=== PATIENT | female | born 1970 | race Caucasian/White ===

== ENCOUNTER 2017-01-28 13:07 | Emergency (ER) | payer BC, MEDICARE, OTHER ==
[2017-01-28 13:20] VITALS: BP 134/78
[2017-01-28] MEDS ORDERED: TETRACAINE HCL 150 DROP BTL ONE (13:38)
--- OUTSIDE RECORDS SUMMARY | 2017-01-28 13:59 | XMS REPORT | Continuity of Care Document ---
:1970 Author Organization [facility] [place] [address] Care Team Providers Name Role Phone Garrett Franz Primary Care Provider [phone] Source Comments This disclosure is being made pursuant to the [employer] program and maynot contain all information available regarding this patient.[facility] Active Allergies and Adverse Reactions Allergen Noted Date Severity Reactions Comments Codeine 05/29/2014 Low Nausea Only,Rash Hydroxyzine 06/08/2016 Other (See Comments) Iodine 05/29/2014 High Shortness Of Breath,Rash Nortriptyline Hcl 05/29/2014 Other (See Comments) Propranolol 06/08/2016 Other (See Comments) Ultram 06/08/2016 Other (See Comments) Current Medications Be aware that medications may not be up to date as of this document. Alwaysverify current medications with the patient. Prescription Sig. Disp. Refills Start Date End Date Status gabapentin (NEURONTIN) Take 300 mg by Active 300 MG capsule mouth 2 (two) times daily. metFORMIN (GLUCOPHAGE) Take 200 mg by Active 500 MG tablet mouth 2 (two) times daily with meals. glipiZIDE (GLUCOTROL) Take 10 mg by Active 10 MG tablet mouth 2 (two) times daily before meals. NEXIUM 40 MG capsule TK 1 C PO QD 11 05/27/2016 Active doxepin (SINEQUAN) 100 TK 1 C PO QD AT 06/01/2016 Active MG capsule BEDTIME alprazolam (XANAX) 2 TK 1 T PO AT NOON 5 05/08/2016 Active MG tablet AND AT BEDTIME montelukast TK 1 T PO QD 05/15/2016 Active (SINGULAIR) 10 MG tablet polyethylene glycol 0 05/26/2016 Active (MIRALAX) powder topiramate (TOPAMAX) TK 1 T PO BID FOR 05/26/2016 Active 200 MG tablet HEADACHE triamcinolone 5 05/26/2016 Active (KENALOG) 0.5 % cream zolpidem (AMBIEN) 10 TK 1 T PO QHS 5 05/15/2016 Active MG tablet lidocaine-prilocaine 11 05/07/2016 Active (EMLA) cream XOPENEX HFA 45 MCG/ACT INHALE 2 PUFFS PO 0 05/07/2016 Active inhaler Q 4 H NEEDED FOR WHEEZING GENERLAC 10 GM/15ML TK 30 ML PO BID 11 06/01/2016 Active SOLN solution IN THE 8 OUNCE GLASS OF WATER YOU TAKE AFTER THE MILK OF MAGNESIA hyoscyamine Take 1 tablet by 30 tablet 1 06/08/2016 Active (ANASPAZ,LEVSIN) 0.125 mouth every 6 MG tablet (six) hours as needed for Cramping or Diarrhea. LINZESS 290 MCG TAKE 1 CAPSULE BY 30 capsule 7 10/29/2016 Active capsule MOUTH EVERY MORNING BEFORE BREAKFAST ONE TOUCH ULTRA TEST daily. TEST BLOOD 1 09/07/2016 Active test strip SUGAR ONCE DAILY ONETOUCH DELICA USE WITH TESTING 1 09/08/2016 Active LANCETS FINE MISC BLOOD SUGAR ONCE DAILY Blood Glucose use as directed 0 09/07/2016 Active Monitoring Suppl (ONE TOUCH ULTRA 2) W/DEVICE KIT ipratropium-albuterol 11 09/16/2016 Active (DUONEB) 0.5-2.5 (3) MG/3ML SOLN BREO ELLIPTA 200-25 INL 1 PUFF PO AT 11 10/22/2016 Active MCG/INH AEPB inhaler THE SAME TIME QD baclofen (LIORESAL) 10 3 10/02/2016 Active MG tablet buPROPion (WELLBUTRIN 11 08/17/2016 Active SR) 150 MG 12 hr tablet Active Problems Problem Noted Date Irritable bowel syndrome with constipation 06/11/2016 Most Recent Encounters Date Type Specialty Providers Description 01/12/2017 Data Import 10/30/2016 Orders Only Provider, Not In System Social History Tobacco Use Types Packs/Day Years Used Date Never Smoker Alcohol Use Drinks/Week oz/Week Comments No Last Filed Vital Signs Vital Sign Reading Time Taken Blood Pressure 130/66 06/08/2016 1:33 PM CDT Pulse 90 06/08/2016 1:33 PM CDT Temperature 35.6 C (96.1 F) 06/08/2016 1:33 PM CDT Respiratory Rate - - Height 1.6 m (5' 3") 06/08/2016 1:33 PM CDT Weight 96.163 kg (212 lb) 06/08/2016 1:33 PM CDT Body Mass Index 37.56 06/08/2016 1:33 PM CDT Oxygen Saturation - - Plan of Care Health Maintenance Due Date Last Done Comments Lab-Lipids 1972 LAB-HgA1C 1977 Foot Exam 1982 Tetanus/Pertussis (1 - Tdap) 12/28/1991 Pap Smear 1993 Eye (Ophthalmology) Exam 05/29/2015 05/29/2014, 05/29/2014, 05/29/2014 Influenza Immunization (#1) 2016 Results from Last 3 Months Not on file
--- OUTSIDE RECORDS SUMMARY | 2017-01-28 13:59 | XMS REPORT | Continuity of Care Document ---
:1970 Author Organization [facility] ([facility]) Address [address] [place] [address] Phone [phone] Care Team Providers Name Role Phone Garrett Franz Primary Care Provider [phone] Source Comments This disclosure is being made pursuant to the Care Everywhere program, applicable federal and state laws, and may not contain all informaitonavailable regarding this patient.[facility] ([facility]) Active Allergies and Adverse Reactions Allergen Noted Date Severity Reactions Comments Codeine 04/04/2014 Nausea & Vomiting Iodine Unknown as a child. injectable dyes. Nortriptyline 04/04/2014 Weakness Promethazine Urticaria (Hives) body cramps Shellfish Containing 04/04/2014 Anaphylaxis Products Tramadol 04/04/2014 Rash Current Medications Prescription Sig. Disp. Refills Start Date End Date Status HYDROcodone-acetaminophe Take 1-2 Tabs by Active n 5-325 mg per tablet mouth every 6 hours as needed. montelukast 10 mg tablet Take 10 mg by mouth Active daily. esomeprazole (NEXIUM) 20 Take 20 mg by mouth Active mg EC capsule every morning before breakfast. metFORMIN 500 mg tablet Take 500 mg by mouth Active 2 times daily with meals. glipiZIDE 5 mg tablet Take 5 mg by mouth 2 Active times daily with meals. ALPRAZolam 1 mg tablet Take 1 mg by mouth Active at bedtime as needed. doxepin 25 mg capsule Take 100 mg by mouth Active daily. levalbuterol (XOPENEX) Use 1.25 mg by Active 1.25 mg/3 mL inhalation inhalation 3 times solution daily as needed. ergocalciferol (VITAMIN Take 50,000 Units by Active D2) 50,000 unit capsule mouth every week. Takes Wednesday and albuterol 5 mg/mL Use 2.5 mg by Active nebulizer solution inhalation every 4 hours as needed. multivitamin tablet Take 1 Tab by mouth Active daily. magnesium citrate PO Take 1 Tab by mouth Active daily. baclofen 20 mg tablet Take 20 mg by mouth Active 2 times daily as needed. gabapentin 300 mg Take 300 mg by mouth Active capsule daily. lidocaine 5 % patch apply 1 Patch on the Active skin daily as needed. Apply 1 patch on the skin daily. Apply for 12 hours and remove for 12 hours, then repeat cycle. potassium citrate 10 mEq Take 10 mEq by mouth Active XR tablet daily. iron 18 mg tablet Take 18 mg by mouth Active daily. Active Problems Problem Noted Date Asthma 06/23/2013 GERD (gastroesophageal reflux disease) 06/23/2013 Diabetes mellitus 06/23/2013 Fibromyalgia 06/23/2013 PCOD (polycystic ovarian disease) 06/23/2013 Chronic pain 06/23/2013 Abdominal pannus 06/23/2013 Immunizations Name Dates Previously Given Next Due Influenza, unspecified 08/11/2008 Social History Tobacco Use Types Packs/Day Years Used Date Never Smoker Smokeless Tobacco: Never Used Alcohol Use Drinks/Week oz/Week Comments Yes 1 Glasses of wine Last Filed Vital Signs Vital Sign Reading Time Taken Blood Pressure 124/75 06/23/2013 11:39 AM CDT Pulse 114 06/23/2013 11:39 AM CDT Temperature 37.9 C (100.2 F) 06/23/2013 11:39 AM CDT Respiratory Rate - - Height 1.562 m (5' 1.5") 06/23/2013 11:39 AM CDT Weight 97.523 kg (215 lb) 06/23/2013 11:39 AM CDT Body Mass Index 39.97 06/23/2013 11:39 AM CDT Oxygen Saturation - - Plan of Care Health Maintenance Due Date Last Done Comments Hepatitis B Vaccine (1 of 3 - Primary Series) 1972 Tdap Vaccine 12/28/1983 DIABETIC: Cholesterol 1990 Diabetic: Hdl 1990 Diabetic: Ldl 1990 DIABETIC: Microalbumin 1990 DIABETIC: Triglycerides 1990 MMR Vaccine 1990 Td Vaccine 1990 Pneumococcal Vaccine (1 of 1 - PPSV23) 12/28/1991 Cervical Cancer Screening 2002 DIABETIC: Hemoglobin A1C 12/28/2002 06/30/2002 Mammogram 2012 DIABETIC: Foot Exam 06/23/2013 DIABETIC: Retinal Eye Exam 06/23/2013 Influenza Vaccine: Seasonal (#1) 05/18/2016 08/11/2008 Results from Last 3 Months Not on file
--- NOTE | 2017-01-28 14:13 | ERNOTE ---
ENT HPI Date of Service: 01/28/17 Presenting Symptoms: eye pain Time Seen by Provider: 01/28/17 13:39 Source: patient Exam Limitations: no limitations - Immun/Allergies/Home Medications Immunizations: IMMUNIZATION HX Immunizations Up to Date Yes History of Influenza Vaccine No Hx Pneumococcal Vaccination No Allergies/Adverse Reactions: Allergies Allergy/AdvReac Type Severity Reaction Status Date / Time dichloralphenazone Allergy Severe HEART Verified 05/25/16 18:09 [From MIDRIN] PALPATATIONS iodine Allergy Severe THROAT Verified 05/25/16 18:09 SWELLING isometheptene mucate Allergy Severe HEART Verified 05/25/16 18:09 [From MIDRIN] PALPATATIONS nortriptyline [Nortriptyline] Allergy Severe PARALYZED-COULD Verified 05/25/16 18:09 NOT MOVE LEGS Shellfish *RETIRED-05/22/13 Allergy Severe THROAT Verified 05/25/16 18:09 [Shellfish] SWELLED UP Grass Pollen-Berm Allergy Intermediate RHINITIS Verified 05/25/16 18:09 *RETIRED-05/22/13 [Grass Pollen-[place], Standard] house dust [House Dust] Allergy Intermediate RHINITIS Verified 05/25/16 18:09 monosodium glutamate Allergy Intermediate MIGRAINES Verified 05/25/16 18:09 Ragweed *RETIRED-05/22/13 Allergy Intermediate RHINITIS Verified 05/25/16 18:09 [Ragweed] ramelteon [From Rozerem] Allergy Intermediate FACIAL Verified 05/25/16 18:09 ITCHING/SWELLING latex Allergy Mild RASH Verified 05/25/16 18:09 Penicillins Allergy Mild RASH Verified 05/25/16 18:09 tramadol HCl [From Ultram] Allergy Mild RASH/ITCHIN Verified 05/25/16 18:09 G/NAUSEA aspartame Allergy Unknown BUTTERFLY Verified 05/25/16 18:09 RASH FACE aspirin Allergy Unknown Itching Verified 05/25/16 18:09 codeine [Codeine] Allergy Unknown NAUSEA/DIZZ Verified 05/25/16 18:09 INESS duloxetine HCl Allergy Unknown "OPPOSITE Verified 05/25/16 18:09 [From Cymbalta] EFFECT" venom-honey bee Allergy Unknown Verified 05/25/16 18:09 [bee venom (honey bee)] mold Allergy Unknown Uncoded 05/25/16 18:09 Home Medications: HOME MEDICATIONS Alprazolam [Alprazolam Xr] 2 mg PO BID 10/01/13 [Last Taken Unknown] Baclofen 10 mg PO TID 10/01/13 [Last Taken Unknown] Calcium Carbonate [Tums] 750 mg PO QID 10/01/13 [Last Taken Unknown] Doxepin HCl 100 mg PO HS 10/01/13 [Last Taken Unknown] Esomeprazole Magnesium [Nexium] 40 mg PO DAILY 10/01/13 [Last Taken Unknown] Gabapentin 300 mg PO TID 10/01/13 [Last Taken Unknown] Glipizide 10 mg PO BID 10/01/13 [Last Taken Unknown] Montelukast Sodium 10 mg PO DAILY 10/01/13 [Last Taken Unknown] Topiramate [Topamax] 100 mg PO DAILY 10/01/13 [Last Taken Unknown] metFORMIN HCL [Metformin HCl ER] 1,000 mg PO BID 10/01/13 [Last Taken Unknown] Cholecalciferol [Vitamin D] 50,000 unit PO Q7D 02/24/14 [Last Taken Unknown] Zolpidem Tartrate [Ambien] 10 mg PO HS PRN 02/24/14 [Last Taken Unknown] Albuterol Sulfate/Ipratropium [Duoneb 2.5-0.5MG/3ML Soln] 3 ml IH QID 07/06/14 [ Last Taken 07/06/14] Polyethylene Glycol 3350 [Gentlelax] 17 gm PO DAILY #510 gm 05/25/16 [Last Taken Unknown] Gentamicin Sulfate [Gentak] 3.5 gm OP BID 4 Days 01/28/17 [Last Taken Unknown] - History of Present Illness Narrative: 46-year-old female presents to the emergency room for right eye pain. States that she was out of town this week and when she woke up her right eye. It has continued since she has returned to town. Date (Duration): 01/28/17 ENT Location: Present: eye (R) Prearrival Treatment: Present: no prearrival treatment Modifying Factors - Improves: Reports: nothing Modifying Factors - Worsens: Reports: nothing Associated Symptoms - ENT: Reports: facial pain/swelling - right eye pain Review of Systems - Review of Systems Constitutional: Present: no symptoms reported EYE: Present: see HPI, eye pain ENT: Present: no symptoms reported Respiratory: Present: no symptoms reported Cardiology: Present: no symptoms reported Gastrointestinal/Abdominal: Present: no symptoms reported Genitourinary: Present: no symptoms reported Musculoskeletal: Present: no symptoms reported Skin: Present: no symptoms reported Neurological: Present: no symptoms reported Endocrine: Present: no symptoms reported Hematologic/Lymphatic: Present: no symptoms reported Psych: Present: no symptoms reported - Patient's Past Medical History Patient History - Medical: Anxiety, Chronic Pain, Diabetes Type 2, Fibromyalgia , GERD, Migraines, Obesity, Other Patient History - Cardiac/Respiratory: Asthma Patient History - Cancer: No Hx of Cancer Patient History - Surgical Procedures: Cholecystectomy, Patient History - Other: None - Family History Father Family History - Medical: , Diabetes Type 2 Family History - Cardiac/Respiratory: Myocardial Infarction - Social History Living Situations: home Abuse History: No History of abuse Psych History: Hx of Anxiety, Hx of Depression Smoking Status: Never smoker Alcohol Use: none Drug Use: none - Immunizations Immunizations Up to Date: Yes Hx Pneumococcal Vaccination: No History of Influenza Vaccine: No Physical Exam - Physical Exam Narrative: right eye pain, reddness and edema to bottom lid. General Appearance: Present: wd/wn, alert, no apparent distress Eye Exam: PERRL: bilateral, Sclera injection: left, Eye drainage: left, Eyelid inflammation: left Ears, Nose, Throat: Present: normal ENT inspection Neck: Present: normal inspection Respiratory: Present: no respiratory distress Cardiovascular/Chest: Present: regular rate, rhythm Gastrointestinal/Abdominal: Present: normal bowel sounds Back Exam: Present: normal inspection Extremity Exam: Present: normal inspection, no edema Neurological Exam: Present: alert, oriented, normal mood/affect, no motor/ sensory deficits Skin Exam: Present: normal color, warm/dry Lymphatic Exam: Present: no adenopathy ED Progress - Vital Signs Vital Signs: Vital Signs 01/28/17 13:14 Temperature 36.4 C L Pulse Rate 98 Respiratory 16 Rate Blood Pressure 134/78 O2 Sat by Pulse 100 Oximetry - Progress/Reassessment Chief Complaint: Eye Injury/Trauma Departure Clinical Impression: Corneal abrasion Qualifiers: Encounter type: initial encounter Laterality: right Qualified Code(s): S05.01XA - Injury of conjunctiva and corneal abrasion without foreign body, right eye, initial encounter - Departure Disposition: Home Follow Up Needed Condition: Stable Instructions: Corneal Abrasion, [id number] Additional Instructions: Continue your previous home medications as directed. Return to the emergency room if pain persists or you are unable to control pain with [id number] pain medications. Follow up with her eye doctor or primary care doctor in the next 2-3 days. Referrals: Garrett Gentile MD [Primary Care Provider] - Prescriptions: Gentamicin Sulfate [Gentak] 3.5 gm OP BID 4 Days
== END 2017-01-28 14:15 | disposition home or self-care (01) ==
LOC: ER 13:07
DX: S05.01XA Injury of conjunctiva and corneal abrasion without foreign body, right eye, initial encounter (principal)

== ENCOUNTER 2017-06-23 18:03 | Emergency (ER) | payer BC, MEDICARE, OTHER ==
[2017-06-23] MEDS ORDERED: KETOROLAC TROMETHAMINE 60 MG/2 ML VIAL IM ONE ×2 (18:43→18:53)
[2017-06-23] MEDS ORDERED: PROMETHAZINE HCL 25 MG/ML AMPUL IM ONE (18:43)
[2017-06-23] MEDS ORDERED: PROMETHAZINE HCL 25 MG/ML AMPUL ONE (18:55)
[2017-06-23 18:59] LABS: Hematocrit 38.9 % (37.0-47.0); Hemoglobin 13.6 gm/dL (12.5-16.0); Mean Cell Volume 85.9 fl (78-100); Mean Platelet Volume 9.2 fl (6.0-9.5); Neutrophil # 5.1 K/mm3 (1.3-6.0); Neutrophil % 64.4 % (42-75.0); Platelet Count 278 K/mm3 (150-450); Red Blood Count 4.53 M/mm3 (4.2-5.4); Red Cell Distribution Width 12.3 % (11.5-14.0); White Blood Count 7.9 K/mm3 (4.0-10.5)
[2017-06-23 19:20] LABS: Albumin * 4.1 gm/dl (3.4-5.0); Anion Gap 18.3 mmol/L (6.8-13.8); Bilirubin, Total 0.2 mg/dL (0.0-1.1); Ca. Corrected For Albumin 7.9 mg/dL (8.4-10.2); Calcium * 8.3 mg/dL (7.9-10.9); Carbon Dioxide 21.2 mmol/L (24-32.6); Potassium 3.5 mmol/L (3.4-4.6); Total Protein 7.8 gm/dL (6.2-8.2)
[2017-06-23 19:43] LABS: Urine Appearance Clear; Urine Bacteria None Seen; Urine Bilirubin Negative (NEGATIVE); Urine Blood Negative /ul (NEGATIVE); Urine Color Yellow; Urine Ketone Negative (NEGATIVE); Urine Nitrite Negative (NEGATIVE); Urine Protein Negative (NEGATIVE); Urine RBC None Seen /hpf (0-5); Urine Specific Gravity <=1.005 SP.GR. (1.005-1.010); Urine Urobilinogen Normal (NORMAL); Urine WBC None Seen /hpf (0-5)
[2017-06-23 20:20] VITALS: BP 122/68
--- NOTE | 2017-06-23 20:48 | ERNOTE ---
Abdominal HPI - Narrative Date of Service: 06/23/17 - General Chief Complaint: Constipation Time Seen by Provider: 06/23/17 18:31 Source: patient, RN notes reviewed Exam Limitations: no limitations - Immun/Allergies/Home Medications Immunizatons: IMMUNIZATION HX Immunizations Up to Date Yes History of Influenza Vaccine No Hx Pneumococcal Vaccination No Allergies/Adverse Reactions: Allergies dichloralphenazone [From MIDRIN] Allergy (Severe, Verified 06/23/17 18:14) HEART PALPATATIONS FROM ALLERGY SHEET iodine Allergy (Severe, Verified 06/23/17 18:14) THROAT SWELLING FROM ALLERGY SHEET isometheptene mucate [From MIDRIN] Allergy (Severe, Verified 06/23/17 18:14) HEART PALPATATIONS FROM ALLERGY SHEET nortriptyline [Nortriptyline] Allergy (Severe, Verified 06/23/17 18:14) PARALYZED-COULD NOT MOVE LEGS FROM ALLERGY LIST Shellfish *RETIRED-05/22/13 [Shellfish] Allergy (Severe, Verified 06/23/17 18:14 ) THROAT SWELLED UP FROM ALLERGY LIST Grass Pollen-Berm *RETIRED-05/22/13 [Grass Pollen-[place], Standard] Allergy ( Intermediate, Verified 06/23/17 18:14) RHINITIS FROM ALLERGY SHEET house dust [House Dust] Allergy (Intermediate, Verified 06/23/17 18:14) RHINITIS FROM ALLERGY SHEET monosodium glutamate Allergy (Intermediate, Verified 06/23/17 18:14) MIGRAINES FROM ALLERGY SHEET Ragweed *RETIRED-05/22/13 [Ragweed] Allergy (Intermediate, Verified 06/23/17 18: 14) RHINITIS FROM ALLERGY SHEET ramelteon [From Rozerem] Allergy (Intermediate, Verified 06/23/17 18:14) FACIAL ITCHING/SWELLING FROM ALLERGY SHEET latex Allergy (Mild, Verified 06/23/17 18:14) RASH FROM ALLERGY SHEET Penicillins Allergy (Mild, Verified 06/23/17 18:14) RASH FROM ALLERGY SHEET tramadol HCl [From Ultram] Allergy (Mild, Verified 06/23/17 18:14) RASH/ITCHING/NAUSEA FROM ALLERGY SHEET aspartame Allergy (Unknown, Verified 06/23/17 18:14) BUTTERFLY RASH FACE FROM ALLERGY SHEET aspirin Allergy (Unknown, Verified 06/23/17 18:14) Itching FROM ALLERGY SHEET codeine [Codeine] Allergy (Unknown, Verified 06/23/17 18:14) NAUSEA/DIZZINESS FROM ALLERGY SHEET duloxetine HCl [From Cymbalta] Allergy (Unknown, Verified 06/23/17 18:14) "OPPOSITE EFFECT" FROM ALLERGY SHEET venom-honey bee [bee venom (honey bee)] Allergy (Unknown, Verified 06/23/17 18: 14) FROM ALLERGY SHEET mold Allergy (Unknown, Uncoded 06/23/17 18:14) Home Medications: HOME MEDICATIONS Alprazolam [Alprazolam Xr] 2 mg PO BID 10/01/13 [Last Taken Unknown] Baclofen 10 mg PO TID 10/01/13 [Last Taken Unknown] Calcium Carbonate [Tums] 750 mg PO QID 10/01/13 [Last Taken Unknown] Doxepin HCl 100 mg PO HS 10/01/13 [Last Taken Unknown] Esomeprazole Magnesium [Nexium] 40 mg PO DAILY 10/01/13 [Last Taken Unknown] Gabapentin 300 mg PO TID 10/01/13 [Last Taken Unknown] Glipizide 10 mg PO BID 10/01/13 [Last Taken Unknown] Montelukast Sodium 10 mg PO DAILY 10/01/13 [Last Taken Unknown] Topiramate [Topamax] 100 mg PO DAILY 10/01/13 [Last Taken Unknown] metFORMIN HCL [Metformin HCl ER] 1,000 mg PO BID 10/01/13 [Last Taken Unknown] Cholecalciferol [Vitamin D] 50,000 unit PO Q7D 02/24/14 [Last Taken Unknown] Zolpidem Tartrate [Ambien] 10 mg PO HS PRN 02/24/14 [Last Taken Unknown] Albuterol Sulfate/Ipratropium [Duoneb 2.5-0.5MG/3ML Soln] 3 ml IH QID 07/06/14 [ Last Taken 07/06/14] Polyethylene Glycol 3350 [Gentlelax] 17 gm PO DAILY #510 gm 05/25/16 [Last Taken Unknown] Gentamicin Sulfate [Gentak] 3.5 gm OP BID 4 Days oint...g. 01/28/17 [Last Taken Unknown] - History of Present Illness Narrative: 46 year old female presents to the ED for constipation. She reports that since she has only passed small amounts of soft to liquid stool. Today she began having some left lower quadrant pain as well. She also reports dizziness and a migraine headache that she has had for 6 weeks. She has a history of chronic constipation and is on Linzess. Prior Abdominal Problems: Present: similar symptoms. Absent: recent trauma Prior Treatment: Absent: recently seen Review of Systems - Review of Systems Constitutional: Absent: recent illness, fever, chills EYE: Present: no symptoms reported ENT: Present: no symptoms reported Respiratory: Absent: shortness of breath, cough Cardiology: Absent: chest pain, syncope Gastrointestinal/Abdominal: Present: diarrhea, constipation, abdominal pain. Absent: nausea, vomiting, eating less, drinking less Genitourinary: Absent: dysuria, hematuria Musculoskeletal: Absent: back pain, joint pain Skin: Absent: rash, lesions Neurological: Present: headache, dizziness/light-headedness. Absent: weakness Endocrine: Present: no symptoms reported Hematologic/Lymphatic: Present: no symptoms reported Psych: Present: no symptoms reported - Patient's Past Medical History Patient History - Medical: Anxiety, Chronic Pain, Diabetes Type 2, Fibromyalgia , GERD, Migraines, Obesity, Other Patient History - Cardiac/Respiratory: Asthma Patient History - Cancer: No Hx of Cancer Patient History - Surgical Procedures: Cholecystectomy, Patient History - Other: None LMP (females 10-50): other - Irregular d/t PCOS LMP (Calendar): 06/18/17 - Family History Father Family History - Medical: , Diabetes Type 2 Family History - Cardiac/Respiratory: Myocardial Infarction - Social History Living Situations: home Abuse History: No History of abuse Psych History: Hx of Anxiety, Hx of Depression Smoking Status: Former smoker Alcohol Use: none Drug Use: none - Immunizations Immunizations Up to Date: Yes Hx Pneumococcal Vaccination: No History of Influenza Vaccine: No Physical Exam - Physical Exam General Appearance: Present: wd/wn, alert, no apparent distress, obese, other - disheveled Respiratory: Present: no respiratory distress, normal breath sounds, no accessory muscle use, lungs clear Cardiovascular/Chest: Present: regular rate, rhythm, no murmur Gastrointestinal/Abdominal: Present: normal bowel sounds, soft, tenderness - Mild, left lower quadrant, distended - Obese Back Exam: Present: normal inspection, no CVA tenderness Extremity Exam: Present: normal inspection, normal range of motion, no edema Neurological Exam: Present: alert, oriented, normal mood/affect, no motor/ sensory deficits Skin Exam: Present: normal color, warm/dry ED Progress - Results and Orders Patient's Lab Results:: I have reviewed the patient's lab results. - Vital Signs Patient's Vital Signs:: I have reviewed the patient's vital signs. Vital Signs: Vital Signs 06/23/17 06/23/17 18:08 19:38 Temperature 36.6 C 36.9 C Pulse Rate 105 H 106 H Respiratory 16 15 Rate Blood Pressure 156/96 131/106 O2 Sat by Pulse 96 94 Oximetry - X-Ray X-Ray #1 X-Ray: abdomen Interpretation: Reviewed by me X-ray Comments: Nonspecific bowel gas pattern without significant stool retention - Progress/Reassessment Chief Complaint: Constipation Progress:: Unchanged Departure - Departure Clinical Impression: Migraine Qualifiers: Migraine type: unspecified Status migrainosus presence: without status migrainosus Intractability: not intractable Qualified Code(s): G43.909 - Migraine, unspecified, not intractable, without status migrainosus Abdominal pain Qualifiers: Abdominal location: unspecified location Qualified Code(s): R10.9 - Unspecified abdominal pain Disposition: Home Follow Up Needed Condition: Stable Instructions: Abdominal Pain, Adult, [id number] Additional Instructions: Continue your routine medications Follow up with your doctor if symptoms continue, but return to the ER if you get worse Referrals: Garrett Gentile MD [Primary Care Provider] -
== END 2017-06-23 20:11 | disposition home or self-care (01) ==
LOC: ER 18:03
DX: G43.909 Migraine, unspecified, not intractable, without status migrainosus (principal); R10.9 Unspecified abdominal pain

== ENCOUNTER 2017-08-17 21:13 | Emergency (ER) | payer BC, MEDICARE, OTHER ==
--- NOTE | 2017-08-17 21:55 | ERNOTE ---
Chest Pain/Cardiac HPI Chief Complaint: Chest Pain Time Seen by Provider: 08/17/17 21:27 Source: patient Exam Limitations: no limitations Immunizations: IMMUNIZATION HX Immunizations Up to Date Yes History of Influenza Vaccine No Hx Pneumococcal Vaccination No Allergies/Adverse Reactions: Allergies dichloralphenazone [From MIDRIN] Allergy (Severe, Verified 08/17/17 21:21) HEART PALPATATIONS FROM ALLERGY SHEET iodine Allergy (Severe, Verified 08/17/17 21:21) THROAT SWELLING FROM ALLERGY SHEET isometheptene mucate [From MIDRIN] Allergy (Severe, Verified 08/17/17 21:21) HEART PALPATATIONS FROM ALLERGY SHEET nortriptyline [Nortriptyline] Allergy (Severe, Verified 08/17/17 21:21) PARALYZED-COULD NOT MOVE LEGS FROM ALLERGY LIST Shellfish *RETIRED-05/22/13 [Shellfish] Allergy (Severe, Verified 08/17/17 21:21 ) THROAT SWELLED UP FROM ALLERGY LIST Grass Pollen-Berm *RETIRED-05/22/13 [Grass Pollen-[place], Standard] Allergy ( Intermediate, Verified 08/17/17 21:21) RHINITIS FROM ALLERGY SHEET house dust [House Dust] Allergy (Intermediate, Verified 08/17/17 21:21) RHINITIS FROM ALLERGY SHEET monosodium glutamate Allergy (Intermediate, Verified 08/17/17 21:21) MIGRAINES FROM ALLERGY SHEET Ragweed *RETIRED-05/22/13 [Ragweed] Allergy (Intermediate, Verified 08/17/17 21: 21) RHINITIS FROM ALLERGY SHEET ramelteon [From Rozerem] Allergy (Intermediate, Verified 08/17/17 21:21) FACIAL ITCHING/SWELLING FROM ALLERGY SHEET latex Allergy (Mild, Verified 08/17/17 21:21) RASH FROM ALLERGY SHEET Penicillins Allergy (Mild, Verified 08/17/17 21:21) RASH FROM ALLERGY SHEET tramadol HCl [From Ultram] Allergy (Mild, Verified 08/17/17 21:21) RASH/ITCHING/NAUSEA FROM ALLERGY SHEET aspartame Allergy (Unknown, Verified 08/17/17 21:21) BUTTERFLY RASH FACE FROM ALLERGY SHEET aspirin Allergy (Unknown, Verified 08/17/17 21:21) Itching FROM ALLERGY SHEET codeine [Codeine] Allergy (Unknown, Verified 08/17/17 21:21) NAUSEA/DIZZINESS FROM ALLERGY SHEET duloxetine HCl [From Cymbalta] Allergy (Unknown, Verified 08/17/17 21:21) "OPPOSITE EFFECT" FROM ALLERGY SHEET venom-honey bee [bee venom (honey bee)] Allergy (Unknown, Verified 08/17/17 21: 21) FROM ALLERGY SHEET pregabalin [From Lyrica] Adverse Reaction (Mild, Verified 08/17/17 21:22) Other mold Allergy (Unknown, Uncoded 08/17/17 21:21) Home Medications: HOME MEDICATIONS Alprazolam [Alprazolam Xr] 2 mg PO BID 10/01/13 [Last Taken Unknown] Baclofen 10 mg PO TID 10/01/13 [Last Taken Unknown] Calcium Carbonate [Tums] 750 mg PO QID 10/01/13 [Last Taken Unknown] Doxepin HCl 100 mg PO HS 10/01/13 [Last Taken Unknown] Esomeprazole Magnesium [Nexium] 40 mg PO DAILY 10/01/13 [Last Taken Unknown] Gabapentin 300 mg PO TID 10/01/13 [Last Taken Unknown] Glipizide 10 mg PO BID 10/01/13 [Last Taken Unknown] Montelukast Sodium 10 mg PO DAILY 10/01/13 [Last Taken Unknown] Topiramate [Topamax] 100 mg PO DAILY 10/01/13 [Last Taken Unknown] metFORMIN HCL [Metformin HCl ER] 1,000 mg PO BID 10/01/13 [Last Taken Unknown] Cholecalciferol [Vitamin D] 50,000 unit PO Q7D 02/24/14 [Last Taken Unknown] Zolpidem Tartrate [Ambien] 10 mg PO HS PRN 02/24/14 [Last Taken Unknown] Albuterol Sulfate/Ipratropium [Duoneb 2.5-0.5MG/3ML Soln] 3 ml IH QID 07/06/14 [ Last Taken 07/06/14] Polyethylene Glycol 3350 [Gentlelax] 17 gm PO DAILY #510 gm 05/25/16 [Last Taken Unknown] Gentamicin Sulfate [Gentak] 3.5 gm OP BID 4 Days oint...g. 01/28/17 [Last Taken Unknown] Narrative: Pt states she has had chest pain/ pressure for approximately 3-4 weeks that has been worsening. Timing: getting worse Severity/Quality: moderate, pressure, other - tingling Location: left chest Chest Pain Radiation: arms - left arm Activities at Onset: none Modifying Factors - Improves: Present: other - aspirin Modifying Factors - Worsens: Present: position - worse if lying down flat Aspirin Treatment Today: 325 mg x 1 Associated Symptoms: Present: dizziness, shortness of breath Prior Chest Pain/Cardiac Workup: Reports: no prior cardiac workup Prior Treatment: Reports: recently seen - by her PCP but she states she is "addressing one issue at a time" and "hasn't gotten to my heart yet" Review of Systems - Review of Systems Constitutional: Present: fatigue, malaise EYE: Present: blurred vision ENT: Present: no symptoms reported Respiratory: Present: shortness of breath Cardiology: Present: chest pain, palpitations, edema. Absent: syncope Gastrointestinal/Abdominal: Present: nausea, constipation, abdominal pain Genitourinary: Present: no symptoms reported Musculoskeletal: Present: back pain - upper Skin: Present: no symptoms reported Neurological: Present: tingling - in chest Endocrine: Present: no symptoms reported Hematologic/Lymphatic: Present: no symptoms reported Psych: Present: anxiety - Patient's Past Medical History Patient History - Medical: Anxiety, Chronic Pain, Diabetes Type 2, Fibromyalgia , GERD, Migraines, Obesity, Other Patient History - Cardiac/Respiratory: Asthma Patient History - Cancer: No Hx of Cancer Patient History - Surgical Procedures: Cholecystectomy, Patient History - Other: None LMP (females 10-50): other - Family History Father Family History - Medical: , Diabetes Type 2 Family History - Cardiac/Respiratory: Myocardial Infarction - Social History Living Situations: home Abuse History: No History of abuse Psych History: Hx of Anxiety, Hx of Depression - Immunizations Immunizations Up to Date: Yes Hx Pneumococcal Vaccination: No History of Influenza Vaccine: No Physical Exam - Physical Exam General Appearance: Present: wd/wn, alert, no apparent distress Head Exam: Present: normal inspection, no evidence of injury Eye Exam: Normal inspection: bilateral Neck: Present: normal inspection, nontender Respiratory: Present: no respiratory distress, normal breath sounds, lungs clear , chest tenderness - left chest anterior and posterior Cardiovascular/Chest: Present: regular rate, rhythm, no murmur, normal peripheral pulses Gastrointestinal/Abdominal: Present: tenderness - epigastric, abnormal bowel sounds - hypoactive. Absent: distended, guarding, rebound Back Exam: Present: no vertebral tenderness Extremity Exam: Present: normal inspection, normal range of motion, no edema Neurological Exam: Present: alert, oriented, no motor/sensory deficits Skin Exam: Present: normal color, warm/dry Lymphatic Exam: Present: no adenopathy ED Progress - Results and Orders Patient's Lab Results:: I have reviewed the patient's lab results. Results and Orders: Laboratory Tests 08/17/17 08/17/17 21:52 21:52 WBC 7.3 Hgb 13.1 Hct 37.5 Plt Count 254 Sodium 136 Potassium 3.7 Chloride 104 Carbon Dioxide 19.6 L BUN 11 Creatinine 0.76 Random Glucose 296 H Calcium 8.3 Total Bilirubin 0.2 AST 37 ALT 65 Alkaline Phosphatase 58 Troponin I Less than 0.017 Total Protein 7.3 Albumin 3.8 Amylase 19 L Lipase 79 - Vital Signs Patient's Vital Signs:: I have reviewed the patient's vital signs. Vital Signs: Vital Signs 08/17/17 21:16 Temperature 36.6 C Pulse Rate 102 H Respiratory 16 Rate Blood Pressure 147/93 O2 Sat by Pulse 96 Oximetry - X-Ray X-Ray #1 X-Ray: chest Interpretation: Interp. by me X-ray Comments: mild bronchial prominence bilateral suggesting bronchitis. no infiltrate or effusion X-Ray #2 X-Ray: abdomen Interpretation: Interp. by me X-ray Comments: moderate stool retention throughout. No evidence for obstruction. no mass. - Progress/Reassessment Chief Complaint: Chest Pain Progress:: Unchanged Progress Note-Subjective: 08/17/17 23:57 discussed bronchitis and could be either viral or allergic. Discussed steroid effects on blood sugars and need to follow up with her PCP. She has an anointment on Wednesday. Discussed using MOM for constipation and also discussing that with her PCP. Departure Clinical Impression: Acute bronchitis Qualifiers: Bronchitis organism: unspecified organism Qualified Code(s): J20.9 - Acute bronchitis, unspecified Constipation Qualifiers: Constipation type: slow transit constipation Qualified Code(s): K59.01 - Slow transit constipation - Departure Disposition: Home Follow Up Needed Condition: Good Instructions: Constipation, Adult, [id number], Acute Bronchitis, [id number] Additional Instructions: you may try milk of magnesia a dose twice a day until your bowels move. See your primary care provider as scheduled. Referrals: Garrett Gentile MD [Primary Care Provider] -
[2017-08-17 22:01] LABS: Hematocrit 37.5 % (37.0-47.0); Hemoglobin 13.1 gm/dL (12.5-16.0); Mean Cell Volume 86.4 fl (78-100); Mean Corpuscular Hemoglobin 30.2 pg (27-31); Mean Corpuscular Hgb Conc 34.9 g/dl (32-36); Neutrophil # 3.8 K/mm3 (1.3-6.0); Neutrophil % 51.9 % (42-75.0); Platelet Count 254 K/mm3 (150-450); Red Blood Count 4.34 M/mm3 (4.2-5.4); Red Cell Distribution Width 12.4 % (11.5-14.0); White Blood Count 7.3 K/mm3 (4.0-10.5)
[2017-08-17 22:22] LABS: ALT 65 U/L (19-67); AST 37 U/L (0-48); Albumin * 3.8 gm/dl (3.4-5.0); Alkaline Phosphatase * 58 U/L (50-170); Amylase * 19 U/L (25-115); Anion Gap 16.1 mmol/L (6.8-13.8); BUN/Creatinine Ratio 14.5 (9.0-21.6); Bilirubin, Total 0.2 mg/dL (0.0-1.1); Blood Urea Nitrogen 11 mg/dL (3-23); Ca. Corrected For Albumin 8.1 mg/dL (8.4-10.2); Calcium * 8.3 mg/dL (7.9-10.9); Carbon Dioxide 19.6 mmol/L (24-32.6); Chloride 104 mmol/L (97-106); Glucose * 296 mg/dL (70-110); Lipase 79 U/L (73-393); Potassium 3.7 mmol/L (3.4-4.6); Sodium 136 mmol/L (132-142); Total Protein 7.3 gm/dL (6.2-8.2); Troponin I Less than 0.017 ng/ml (0.00-0.10)
[2017-08-17] MEDS ORDERED: METHYLPREDNISOLONE ACETATE 80 MG/ML VIAL IM ONE (23:30)
[2017-08-17] MEDS ORDERED: DEXAMETHASONE SOD PHOSPHATE 10 MG/ML VIAL IM ONE (23:30)
[2017-08-17] MEDS ORDERED: METHYLPREDNISOLONE ACETATE 80 MG/ML VIAL ONE (23:32)
[2017-08-17] MEDS ORDERED: DEXAMETHASONE SOD PHOSPHATE 10 MG/ML VIAL ONE (23:32)
[2017-08-17 23:37] VITALS: BP 145/67
== END 2017-08-17 23:38 | disposition home or self-care (01) ==
LOC: ER 21:13
DX: J20.9 Acute bronchitis, unspecified (principal); K59.01 Slow transit constipation

== ENCOUNTER 2017-09-08 11:43 | Emergency (ER) | payer BC, MEDICARE, OTHER ==
[2017-09-08] MEDS ORDERED: ALBUTEROL SULFATE/IPRATROPIUM 3 ML NEBU IH ONE ×3 (12:20→12:58)
--- NOTE | 2017-09-08 12:26 | ERNOTE ---
Date of Service: 09/08/17 Time Seen by Provider: 09/08/17 12:54 Stated Complaint: URI Presenting Symptoms:: cough, sore throat, runny nose Source: patient Immunizations: IMMUNIZATION HX Immunizations Up to Date Yes History of Influenza Vaccine No Hx Pneumococcal Vaccination No Allergies/Adverse Reactions: Allergies dichloralphenazone [From MIDRIN] Allergy (Severe, Verified 09/08/17 11:53) HEART PALPATATIONS FROM ALLERGY SHEET iodine Allergy (Severe, Verified 09/08/17 11:53) THROAT SWELLING FROM ALLERGY SHEET isometheptene mucate [From MIDRIN] Allergy (Severe, Verified 09/08/17 11:53) HEART PALPATATIONS FROM ALLERGY SHEET nortriptyline [Nortriptyline] Allergy (Severe, Verified 09/08/17 11:53) PARALYZED-COULD NOT MOVE LEGS FROM ALLERGY LIST Shellfish *RETIRED-05/22/13 [Shellfish] Allergy (Severe, Verified 09/08/17 11:53 ) THROAT SWELLED UP FROM ALLERGY LIST Grass Pollen-Berm *RETIRED-05/22/13 [Grass Pollen-[place], Standard] Allergy ( Intermediate, Verified 09/08/17 11:53) RHINITIS FROM ALLERGY SHEET house dust [House Dust] Allergy (Intermediate, Verified 09/08/17 11:53) RHINITIS FROM ALLERGY SHEET monosodium glutamate Allergy (Intermediate, Verified 09/08/17 11:53) MIGRAINES FROM ALLERGY SHEET Ragweed *RETIRED-05/22/13 [Ragweed] Allergy (Intermediate, Verified 09/08/17 11: 53) RHINITIS FROM ALLERGY SHEET ramelteon [From Rozerem] Allergy (Intermediate, Verified 09/08/17 11:53) FACIAL ITCHING/SWELLING FROM ALLERGY SHEET latex Allergy (Mild, Verified 09/08/17 11:53) RASH FROM ALLERGY SHEET Penicillins Allergy (Mild, Verified 09/08/17 11:53) RASH FROM ALLERGY SHEET tramadol HCl [From Ultram] Allergy (Mild, Verified 09/08/17 11:53) RASH/ITCHING/NAUSEA FROM ALLERGY SHEET aspartame Allergy (Unknown, Verified 09/08/17 11:53) BUTTERFLY RASH FACE FROM ALLERGY SHEET aspirin Allergy (Unknown, Verified 09/08/17 11:53) Itching FROM ALLERGY SHEET codeine [Codeine] Allergy (Unknown, Verified 09/08/17 11:53) NAUSEA/DIZZINESS FROM ALLERGY SHEET duloxetine HCl [From Cymbalta] Allergy (Unknown, Verified 09/08/17 11:53) "OPPOSITE EFFECT" FROM ALLERGY SHEET venom-honey bee [bee venom (honey bee)] Allergy (Unknown, Verified 09/08/17 11: 53) FROM ALLERGY SHEET pregabalin [From Lyrica] Adverse Reaction (Mild, Verified 09/08/17 11:53) Other mold Allergy (Unknown, Uncoded 09/08/17 11:53) Home Medications: HOME MEDICATIONS Alprazolam [Alprazolam Xr] 2 mg PO BID 10/01/13 [Last Taken Unknown] Baclofen 10 mg PO TID 10/01/13 [Last Taken Unknown] Calcium Carbonate [Tums] 750 mg PO QID 10/01/13 [Last Taken Unknown] Doxepin HCl 100 mg PO HS 10/01/13 [Last Taken Unknown] Esomeprazole Magnesium [Nexium] 40 mg PO DAILY 10/01/13 [Last Taken Unknown] Gabapentin 300 mg PO TID 10/01/13 [Last Taken Unknown] Montelukast Sodium 10 mg PO DAILY 10/01/13 [Last Taken Unknown] Topiramate [Topamax] 100 mg PO DAILY 10/01/13 [Last Taken Unknown] metFORMIN HCL [Metformin HCl ER] 2,000 mg PO DAILY 10/01/13 [Last Taken Unknown] Cholecalciferol [Vitamin D] 50,000 unit PO Q7D 02/24/14 [Last Taken Unknown] Zolpidem Tartrate [Ambien] 10 mg PO HS PRN 02/24/14 [Last Taken Unknown] Albuterol Sulfate/Ipratropium [Duoneb 2.5-0.5MG/3ML Soln] 3 ml IH QID 07/06/14 [ Last Taken 07/06/14] Polyethylene Glycol 3350 [Gentlelax] 17 gm PO DAILY #510 gm 05/25/16 [Last Taken Unknown] Albuterol Sulfate/Ipratropium [Duoneb 2.5-0.5MG/3ML Soln] 3 ml IH QID 09/08/17 [ Last Taken Unknown] Levalbuterol Tartrate [Xopenex Hfa] 15 gm IH DAILY 09/08/17 [Last Taken Unknown] Nebulizer Accessories [Aeroneb Go] 1 each MC ONCE #1 each 09/08/17 [Last Taken Unknown] Nebulizer [Aeroeclipse II] 1 each MC ONCE #1 each 09/08/17 [Last Taken Unknown] Prednisone 50 mg PO DAILY #7 tablet 09/08/17 [Last Taken Unknown] - History of Present Ilness Narrative: Patient is a 46-year-old white female who presents to the emergency room with a history of asthma currently complaining of upper respiratory tract infection that started 1-2 days ago. Apparently she has a son who was exposed to upper respiratory tract infection symptoms over the past 3 or 4 days prior her main complaint however is nasal congestion, nasal discharge, cough and wheezing. He does utilize an albuterol nebulizer at home which belongs to her stepfather and is about to give her back to her because he is sick as well. She also reports posttussive chest pain. She denies any pleuritic symptoms, hemoptysis, event, chills, night sweats. So complains of sore throat. Timing: constant Severity: moderate Associated Symptoms: Reports: chest pain/soreness. Denies: facial pain, dizziness, lightheadedness, earache, headache Review of Systems - Review of Systems Constitutional: Present: See HPI EYE: Present: see HPI ENT: Present: nose congestion, nasal drainage, sore throat Respiratory: Present: See HPI Cardiology: Present: no symptoms reported Gastrointestinal/Abdominal: Present: no symptoms reported Genitourinary: Present: no symptoms reported Skin: Present: no symptoms reported Neurological: Present: no symptoms reported Endocrine: Present: no symptoms reported Hematologic/Lymphatic: Present: no symptoms reported Psych: Present: no symptoms reported - Patient's Past Medical History Patient History - Medical: Anxiety, Chronic Pain, Diabetes Type 2, Fibromyalgia , GERD, Migraines, Obesity, Other Patient History - Cardiac/Respiratory: Asthma Patient History - Cancer: No Hx of Cancer Patient History - Surgical Procedures: Cholecystectomy, Patient History - Other: None - Family History Father Family History - Medical: , Diabetes Type 2 Family History - Cardiac/Respiratory: Myocardial Infarction - Social History Living Situations: home Abuse History: No History of abuse Psych History: Hx of Anxiety, Hx of Depression Alcohol Use: none Drug Use: none - Immunizations Immunizations Up to Date: Yes Hx Pneumococcal Vaccination: No History of Influenza Vaccine: No Physical Exam - Physical Exam General Appearance: Present: wd/wn, alert, no apparent distress Head Exam: Present: normal inspection, no evidence of injury Eye Exam: Normal inspection: bilateral, PERRL: bilateral, EOMI: bilateral Ears, Nose, Throat: Present: normal ENT inspection, normal pharynx Neck: Present: normal inspection, nontender, supple Respiratory: Present: no respiratory distress, expiration (prolonged), wheezing Cardiovascular/Chest: Present: regular rate, rhythm, no murmur, normal peripheral pulses Gastrointestinal/Abdominal: Present: normal bowel sounds, nontender, nondistended, soft Neurological Exam: Present: alert, oriented, normal mood/affect, no motor/ sensory deficits Skin Exam: Present: normal color, warm/dry, cool/dry ED Progress - Results and Orders Patient's Lab Results:: I have reviewed the patient's lab results. - Vital Signs Patient's Vital Signs:: I have reviewed the patient's vital signs. Vital Signs: Vital Signs 09/08/17 09/08/17 11:48 12:05 Temperature 35.8 C L Pulse Rate 101 H 101 H Respiratory 12 Rate Blood Pressure 152/85 O2 Sat by Pulse 97 Oximetry - Progress/Reassessment Chief Complaint: Upper Respiratory Symptoms Progress:: Unchanged - Transfer of Care Expected Disposition: Discharge Departure Clinical Impression: Upper respiratory infection Qualifiers: URI type: unspecified viral URI Qualified Code(s): J06.9 - Acute upper respiratory infection, unspecified; B97.89 - Other viral agents as the cause of diseases classified elsewhere; B97.89 - Other viral agents as the cause of diseases classified elsewhere Reactive airway disease with acute exacerbation Qualifiers: Asthma severity: mild Asthma persistence: intermittent Qualified Code(s): J45.21 - Mild intermittent asthma with (acute) exacerbation - Departure Disposition: Home self-care Condition: Stable Instructions: Asthma, Acute Bronchospasm Referrals: Garrett Gentile MD [Primary Care Provider] - Prescriptions: Nebulizer [Aeroeclipse II] 1 each MC ONCE #1 each Nebulizer Accessories [Aeroneb Go] 1 each MC ONCE #1 each Prednisone 50 mg PO DAILY #7 tablet
[2017-09-08 12:55] VITALS: BP 141/88
[2017-09-08] MEDS ORDERED: ALBUTEROL SULFATE 2.5 MG/0.5 ML VIAL.NEB IH ONE (12:57)
== END 2017-09-08 13:15 | disposition home or self-care (01) ==
LOC: ER 11:43
DX: J06.9 Acute upper respiratory infection, unspecified (principal); B97.89 Other viral agents as the cause of diseases classified elsewhere; J45.21 Mild intermittent asthma with (acute) exacerbation; E11.9 Type 2 diabetes mellitus without complications; F41.9 Anxiety disorder, unspecified

== ENCOUNTER 2017-09-08 23:02 | Emergency (ER) | payer BC, MEDICARE, OTHER ==
--- NOTE | 2017-09-09 | ERNOTE ---
Medical Problem HPI - General Chief Complaint: General Assessment Time Seen by Provider: 09/08/17 23:35 Source: patient Exam Limitations: no limitations - Immun/Allergies/Home Medications Immunizations: IMMUNIZATION HX Immunizations Up to Date Yes History of Influenza Vaccine No Hx Pneumococcal Vaccination No Allergies/Adverse Reactions: Allergies dichloralphenazone [From MIDRIN] Allergy (Severe, Verified 09/08/17 23:11) HEART PALPATATIONS FROM ALLERGY SHEET iodine Allergy (Severe, Verified 09/08/17 23:11) THROAT SWELLING FROM ALLERGY SHEET isometheptene mucate [From MIDRIN] Allergy (Severe, Verified 09/08/17 23:11) HEART PALPATATIONS FROM ALLERGY SHEET nortriptyline [Nortriptyline] Allergy (Severe, Verified 09/08/17 23:11) PARALYZED-COULD NOT MOVE LEGS FROM ALLERGY LIST Shellfish *RETIRED-05/22/13 [Shellfish] Allergy (Severe, Verified 09/08/17 23:11 ) THROAT SWELLED UP FROM ALLERGY LIST Grass Pollen-Berm *RETIRED-05/22/13 [Grass Pollen-[place], Standard] Allergy ( Intermediate, Verified 09/08/17 23:11) RHINITIS FROM ALLERGY SHEET house dust [House Dust] Allergy (Intermediate, Verified 09/08/17 23:11) RHINITIS FROM ALLERGY SHEET monosodium glutamate Allergy (Intermediate, Verified 09/08/17 23:11) MIGRAINES FROM ALLERGY SHEET Ragweed *RETIRED-05/22/13 [Ragweed] Allergy (Intermediate, Verified 09/08/17 23: 11) RHINITIS FROM ALLERGY SHEET ramelteon [From Rozerem] Allergy (Intermediate, Verified 09/08/17 23:11) FACIAL ITCHING/SWELLING FROM ALLERGY SHEET latex Allergy (Mild, Verified 09/08/17 23:11) RASH FROM ALLERGY SHEET Penicillins Allergy (Mild, Verified 09/08/17 23:11) RASH FROM ALLERGY SHEET tramadol HCl [From Ultram] Allergy (Mild, Verified 09/08/17 23:11) RASH/ITCHING/NAUSEA FROM ALLERGY SHEET aspartame Allergy (Unknown, Verified 09/08/17 23:11) BUTTERFLY RASH FACE FROM ALLERGY SHEET aspirin Allergy (Unknown, Verified 09/08/17 23:11) Itching FROM ALLERGY SHEET codeine [Codeine] Allergy (Unknown, Verified 09/08/17 23:11) NAUSEA/DIZZINESS FROM ALLERGY SHEET duloxetine HCl [From Cymbalta] Allergy (Unknown, Verified 09/08/17 23:11) "OPPOSITE EFFECT" FROM ALLERGY SHEET venom-honey bee [bee venom (honey bee)] Allergy (Unknown, Verified 09/08/17 23: 11) FROM ALLERGY SHEET pregabalin [From Lyrica] Adverse Reaction (Mild, Verified 09/08/17 23:11) Other mold Allergy (Unknown, Uncoded 09/08/17 23:11) Home Medications: HOME MEDICATIONS Alprazolam [Alprazolam Xr] 2 mg PO BID 10/01/13 [Last Taken Unknown] Baclofen 10 mg PO TID 10/01/13 [Last Taken Unknown] Calcium Carbonate [Tums] 750 mg PO QID 10/01/13 [Last Taken Unknown] Doxepin HCl 100 mg PO HS 10/01/13 [Last Taken Unknown] Esomeprazole Magnesium [Nexium] 40 mg PO DAILY 10/01/13 [Last Taken Unknown] Gabapentin 300 mg PO TID 10/01/13 [Last Taken Unknown] Montelukast Sodium 10 mg PO DAILY 10/01/13 [Last Taken Unknown] Topiramate [Topamax] 100 mg PO DAILY 10/01/13 [Last Taken Unknown] metFORMIN HCL [Metformin HCl ER] 2,000 mg PO DAILY 10/01/13 [Last Taken Unknown] Cholecalciferol [Vitamin D] 50,000 unit PO Q7D 02/24/14 [Last Taken Unknown] Zolpidem Tartrate [Ambien] 10 mg PO HS PRN 02/24/14 [Last Taken Unknown] Albuterol Sulfate/Ipratropium [Duoneb 2.5-0.5MG/3ML Soln] 3 ml IH QID 07/06/14 [ Last Taken 07/06/14] Polyethylene Glycol 3350 [Gentlelax] 17 gm PO DAILY #510 gm 05/25/16 [Last Taken Unknown] Albuterol Sulfate/Ipratropium [Duoneb 2.5-0.5MG/3ML Soln] 3 ml IH QID 09/08/17 [ Last Taken Unknown] Levalbuterol Tartrate [Xopenex Hfa] 15 gm IH DAILY 09/08/17 [Last Taken Unknown] Nebulizer Accessories [Aeroneb Go] 1 each ONCE #1 each 09/08/17 [Last Taken Unknown] Nebulizer [Aeroeclipse II] 1 each MC ONCE #1 each 09/08/17 [Last Taken Unknown] Prednisone 50 mg PO DAILY #7 tablet 09/08/17 [Last Taken Unknown] - History of Present History Narrative: Pt has had high blood sugars today over 400. Upon arrival nursing checked and her BG was found over one hundred points lower on our glucose meter here than she found at home. She then rechecked with her meter and again received a result more than 100 points higher on her machine. Timing: getting worse Severity: moderate Modifying Factors - (Improves): Present: medication Modifying Factors - (Worsens): Present: eating Review of Systems - Review of Systems Constitutional: Present: recent illness, fever EYE: Present: no symptoms reported ENT: Present: nose congestion Respiratory: Present: shortness of breath Cardiology: Absent: chest pain Gastrointestinal/Abdominal: Absent: nausea, vomiting Genitourinary: Present: no symptoms reported Musculoskeletal: Present: no symptoms reported Skin: Present: no symptoms reported Neurological: Present: anxiety. Absent: numbness, tingling Endocrine: Present: increased thirst. Absent: excessive sweating, flushing Hematologic/Lymphatic: Present: no symptoms reported Psych: Present: no symptoms reported - Patient's Past Medical History Patient History - Medical: Anxiety, Chronic Pain, Diabetes Type 2, Fibromyalgia , GERD, Migraines, Obesity, Other Patient History - Cardiac/Respiratory: Asthma Patient History - Cancer: No Hx of Cancer Patient History - Surgical Procedures: Cholecystectomy, Patient History - Other: None - Family History Father Family History - Medical: , Diabetes Type 2 Family History - Cardiac/Respiratory: Myocardial Infarction - Social History Living Situations: home Abuse History: No History of abuse Psych History: Hx of Anxiety, Hx of Depression Smoking Status: Never smoker Alcohol Use: none Drug Use: none - Immunizations Immunizations Up to Date: Yes Hx Pneumococcal Vaccination: No History of Influenza Vaccine: No Physical Exam - Physical Exam General Appearance: Present: wd/wn, alert, no apparent distress Head Exam: Present: normal inspection, no evidence of injury Eye Exam: Normal inspection: bilateral, PERRL: bilateral Ears, Nose, Throat: Present: normal ENT inspection Neck: Present: normal inspection, nontender Respiratory: Present: no respiratory distress, normal breath sounds, no accessory muscle use, lungs clear Cardiovascular/Chest: Present: regular rate, rhythm, no murmur Neurological Exam: Present: alert, oriented, normal mood/affect Skin Exam: Present: normal color, warm/dry Lymphatic Exam: Present: no adenopathy ED Progress - Vital Signs Vital Signs: Vital Signs 09/08/17 23:07 Temperature 36.3 C L Pulse Rate 116 H Respiratory 20 Rate Blood Pressure 126/78 O2 Sat by Pulse 96 Oximetry - Progress/Reassessment Chief Complaint: General Assessment Progress Note-Subjective: 09/08/17 23:59 I spoke to the patient and reviewed her medications. There is no room to increase any of her diabetic medications to assist in keeping her BG down. We decided that she would watch what she eats very closely and keep her carbs to near zero. I also instructed her to reduce her prednisone by half after 3 doses to reduce the effect on her blood sugars. Pt expressed understanding. Departure Clinical Impression: Hyperglycemia, drug-induced Acute asthma exacerbation Qualifiers: Asthma severity: moderate Asthma persistence: persistent Qualified Code(s): J45.41 - Moderate persistent asthma with (acute) exacerbation - Departure Disposition: Home self-care Condition: Good Instructions: Hyperglycemia, [id number] Additional Instructions: Continue to check your blood sugars recognizing that your meter is reading higher than the actual level. See your primary care provider or return to the ER if you have symptoms that do not improve and are concerning. Cut your prednisone in half after the 3rd dose Referrals: Garrett Gentile MD [Primary Care Provider] -
[2017-09-09 00:10] VITALS: BP 131/78
== END 2017-09-09 00:07 | disposition home or self-care (01) ==
LOC: ER 23:02
DX: R73.9 Hyperglycemia, unspecified (principal); T50.905A Adverse effect of unspecified drugs, medicaments and biological substances, initial encounter

== ENCOUNTER 2017-09-10 15:56 | Emergency (ER) | payer BC, MEDICARE, OTHER ==
--- NOTE | 2017-09-10 16:50 | ERNOTE ---
Medical Problem HPI - Narrative Date of Service: 09/10/17 - General Chief Complaint: Diabetes Related Problem Time Seen by Provider: 09/10/17 16:20 Source: patient Exam Limitations: no limitations - Immun/Allergies/Home Medications Immunizations: IMMUNIZATION HX Immunizations Up to Date Yes History of Influenza Vaccine No Hx Pneumococcal Vaccination No Allergies/Adverse Reactions: Allergies dichloralphenazone [From MIDRIN] Allergy (Severe, Verified 09/10/17 16:16) HEART PALPATATIONS FROM ALLERGY SHEET iodine Allergy (Severe, Verified 09/10/17 16:16) THROAT SWELLING FROM ALLERGY SHEET isometheptene mucate [From MIDRIN] Allergy (Severe, Verified 09/10/17 16:16) HEART PALPATATIONS FROM ALLERGY SHEET nortriptyline [Nortriptyline] Allergy (Severe, Verified 09/10/17 16:16) PARALYZED-COULD NOT MOVE LEGS FROM ALLERGY LIST Shellfish *RETIRED-05/22/13 [Shellfish] Allergy (Severe, Verified 09/10/17 16:16 ) THROAT SWELLED UP FROM ALLERGY LIST ramelteon [From Rozerem] Allergy (Intermediate, Verified 09/10/17 16:16) FACIAL ITCHING/SWELLING FROM ALLERGY SHEET latex Allergy (Mild, Verified 09/10/17 16:16) RASH FROM ALLERGY SHEET Penicillins Allergy (Mild, Verified 09/10/17 16:16) RASH FROM ALLERGY SHEET tramadol HCl [From Ultram] Allergy (Mild, Verified 09/10/17 16:16) RASH/ITCHING/NAUSEA FROM ALLERGY SHEET aspartame Allergy (Unknown, Verified 09/10/17 16:16) BUTTERFLY RASH FACE FROM ALLERGY SHEET aspirin Allergy (Unknown, Verified 09/10/17 16:16) Itching FROM ALLERGY SHEET duloxetine HCl [From Cymbalta] Allergy (Unknown, Verified 09/10/17 16:16) "OPPOSITE EFFECT" FROM ALLERGY SHEET venom-honey bee [bee venom (honey bee)] Allergy (Unknown, Verified 09/10/17 16: 16) FROM ALLERGY SHEET Grass Pollen-Berm *RETIRED-05/22/13 [Grass Pollen-[place], Standard] Adverse Reaction (Intermediate, Verified 09/10/17 16:23) RHINITIS FROM ALLERGY SHEET house dust [House Dust] Adverse Reaction (Intermediate, Verified 09/10/17 16:23) RHINITIS FROM ALLERGY SHEET monosodium glutamate Adverse Reaction (Intermediate, Verified 09/10/17 16:23) MIGRAINES FROM ALLERGY SHEET Ragweed *RETIRED-05/22/13 [Ragweed] Adverse Reaction (Intermediate, Verified 16:23) RHINITIS FROM ALLERGY SHEET pregabalin [From Lyrica] Adverse Reaction (Mild, Verified 09/10/17 16:16) Other codeine [Codeine] Adverse Reaction (Unknown, Verified 09/10/17 16:23) NAUSEA/DIZZINESS FROM ALLERGY SHEET atorvastatin [From Lipitor] Adverse Reaction (Verified 09/10/17 16:16) Other mold Allergy (Unknown, Uncoded 09/10/17 16:16) Home Medications: HOME MEDICATIONS Alprazolam [Alprazolam Xr] 2 mg PO BID 10/01/13 [Last Taken Unknown] Baclofen 10 mg PO TID 10/01/13 [Last Taken Unknown] Calcium Carbonate [Tums] 750 mg PO QID 10/01/13 [Last Taken Unknown] Doxepin HCl 100 mg PO HS 10/01/13 [Last Taken Unknown] Esomeprazole Magnesium [Nexium] 40 mg PO DAILY 10/01/13 [Last Taken Unknown] Gabapentin 300 mg PO TID 10/01/13 [Last Taken Unknown] Montelukast Sodium 10 mg PO DAILY 10/01/13 [Last Taken Unknown] Topiramate [Topamax] 100 mg PO DAILY 10/01/13 [Last Taken Unknown] metFORMIN HCL [Metformin HCl ER] 2,000 mg PO DAILY 10/01/13 [Last Taken Unknown] Cholecalciferol [Vitamin D] 50,000 unit PO Q7D 02/24/14 [Last Taken Unknown] Zolpidem Tartrate [Ambien] 10 mg PO HS PRN 02/24/14 [Last Taken Unknown] Albuterol Sulfate/Ipratropium [Duoneb 2.5-0.5MG/3ML Soln] 3 ml IH QID 07/06/14 [ Last Taken 07/06/14] Polyethylene Glycol 3350 [Gentlelax] 17 gm PO DAILY #510 gm 05/25/16 [Last Taken Unknown] Albuterol Sulfate/Ipratropium [Duoneb 2.5-0.5MG/3ML Soln] 3 ml IH QID 09/08/17 [ Last Taken Unknown] Levalbuterol Tartrate [Xopenex Hfa] 15 gm IH DAILY 09/08/17 [Last Taken Unknown] Nebulizer Accessories [Aeroneb Go] 1 each MC ONCE #1 each 09/08/17 [Last Taken Unknown] Nebulizer [Aeroeclipse II] 1 each MC ONCE #1 each 09/08/17 [Last Taken Unknown] Prednisone 50 mg PO DAILY #7 tablet 09/08/17 [Last Taken Unknown] - History of Present History Narrative: Pt. comes in with c/o high blood sugar of 499 today. Pt. has been on prednisone for bronchitis for three days and states taht her bloos sugar has gone up. Pt. was recently taken off of her blood sugar medications and started on Januvia in addition to her regular metformin. Pt. states that things have been tasting fruity and that she is nauseated and dizzy. Pt. deniesa ny SOB, CP , fever, alleviating fctors or aggravating factors but states that she has been pushing fluids. Timing: getting worse Modifying Factors - (Improves): Present: other - denies Review of Systems - Review of Systems Constitutional: Present: fatigue, malaise. Absent: fever, chills, weakness EYE: Present: no symptoms reported. Absent: eye pain, eye discharge, double vision, vision changes, tearing ENT: Present: no symptoms reported. Absent: nose pain, nose congestion, nasal drainage, sore throat Respiratory: Present: no symptoms reported. Absent: shortness of breath, cough , wheezing Cardiology: Present: no symptoms reported. Absent: chest pain, palpitations, edema Gastrointestinal/Abdominal: Present: nausea. Absent: vomiting, diarrhea, abdominal pain Genitourinary: Present: no symptoms reported Musculoskeletal: Present: no symptoms reported. Absent: back pain, joint pain Skin: Present: no symptoms reported. Absent: rash, change in color Neurological: Present: no symptoms reported. Absent: headache, dizziness/light- headedness, numbness, tingling All Other Systems: All systems neg except as marked - Patient's Past Medical History Patient History - Medical: Anxiety, Chronic Pain, Diabetes Type 2, Fibromyalgia , GERD, Migraines, Obesity Patient History - Cardiac/Respiratory: Asthma Patient History - Cancer: No Hx of Cancer Patient History - Surgical Procedures: Cholecystectomy, Patient History - Other: None - Family History Father Family History - Medical: , Diabetes Type 2 Family History - Cardiac/Respiratory: Myocardial Infarction - Social History Abuse History: No History of abuse Psych History: Hx of Anxiety, Hx of Depression Smoking Status: Never smoker - Immunizations Immunizations Up to Date: Yes Hx Pneumococcal Vaccination: No History of Influenza Vaccine: No Physical Exam - Physical Exam General Appearance: Present: wd/wn, alert, no apparent distress Head Exam: Present: normal inspection, no evidence of injury Eye Exam: Normal inspection: bilateral, PERRL: bilateral, EOMI: bilateral Ears, Nose, Throat: Present: normal ENT inspection, normal pharynx Neck: Present: normal inspection, nontender, supple, full range of motion. Absent: lymphadenopathy (R), lymphadenopathy (L) Respiratory: Present: no respiratory distress, normal breath sounds, no accessory muscle use, chest nontender, lungs clear Cardiovascular/Chest: Present: regular rate, rhythm, no murmur, normal peripheral pulses Gastrointestinal/Abdominal: Present: normal bowel sounds, nontender, nondistended, soft, no organomegaly Back Exam: Present: normal inspection, normal range of motion, no CVA tenderness , no vertebral tenderness Extremity Exam: Present: normal inspection, non-tender, normal range of motion, no edema Neurological Exam: Present: alert, oriented, normal mood/affect, no motor/ sensory deficits Skin Exam: Present: normal color, warm/dry. Absent: pallor, skin rash ED Progress - Date and Time Seen: Date and Time: 09/10/17 18:26 Feel that pt. elevated blood glucose is likely from steroid burst but will treat here but will not prescribe any as pt. glucometer is not working. Have told pt. that she needs to get a new glucometer and follow up with her PCP on Wednesday. Considered stopping steroid but as pt. states that she is only mildy improved from when they were started feel that it would be more prudent to keep pt. on them. - Results and Orders Patient's Lab Results:: I have reviewed the patient's lab results. - Vital Signs Patient's Vital Signs:: I have reviewed the patient's vital signs. Vital Signs: Vital Signs 09/10/17 16:05 Temperature 37.1 C Pulse Rate 108 H Respiratory 16 Rate Blood Pressure 151/95 O2 Sat by Pulse 96 Oximetry - Progress/Reassessment Chief Complaint: Diabetes Related Problem Progress:: Improved Departure Clinical Impression: Hyperglycemia, drug-induced - Departure Disposition: Home self-care Condition: Good Instructions: Hyperglycemia, [id number] Additional Instructions: Please follow up with primary provider on Wednesday. Please get a New glucometer and continue increase of fluids. Please eat 1 item of protein every 2 hours. Referrals: Garrett Gentile MD [Primary Care Provider] -
[2017-09-10 16:53] LABS: Hematocrit 41.7 % (37.0-47.0); Hemoglobin 14.4 gm/dL (12.5-16.0); Mean Cell Volume 85.5 fl (78-100); Mean Corpuscular Hemoglobin 29.5 pg (27-31); Mean Corpuscular Hgb Conc 34.5 g/dl (32-36); Mean Platelet Volume 8.9 fl (6.0-9.5); Neutrophil # 7.9 K/mm3 (1.3-6.0); Neutrophil % 88.2 % (42-75.0); Platelet Count 349 K/mm3 (150-450); Red Blood Count 4.88 M/mm3 (4.2-5.4); Red Cell Distribution Width 12.5 % (11.5-14.0)
[2017-09-10 17:04] LABS: Urine Bilirubin Negative (NEGATIVE); Urine Blood 250 /ul (NEGATIVE); Urine Ketone Negative (NEGATIVE); Urine Nitrite Negative (NEGATIVE); Urine Protein Negative (NEGATIVE); Urine Specific Gravity <=1.005 SP.GR. (1.005-1.010); Urine Urobilinogen Normal (NORMAL)
[2017-09-10 17:07] LABS: Hemoglobin A1C 9.1 % (4.00-6.0)
[2017-09-10 17:09] LABS: ALT 50 U/L (19-67); AST 28 U/L (0-48); Albumin * 4.2 gm/dl (3.4-5.0); Alkaline Phosphatase * 65 U/L (50-170); Anion Gap 20.9 mmol/L (6.8-13.8); BUN/Creatinine Ratio 17.2 (9.0-21.6); Bilirubin, Total 0.2 mg/dL (0.0-1.1); Blood Urea Nitrogen 15 mg/dL (3-23); Ca. Corrected For Albumin 8.7 mg/dL (8.4-10.2); Calcium * 9.2 mg/dL (7.9-10.9); Carbon Dioxide 19.3 mmol/L (24-32.6); Chloride 99 mmol/L (97-106); Glucose * 351 mg/dL (70-110); Potassium 4.2 mmol/L (3.4-4.6); Sodium 135 mmol/L (132-142); Total Protein 8.3 gm/dL (6.2-8.2)
[2017-09-10] MEDS ORDERED: NORMAL SALINE 1,000 ML IV ONE (17:23)
[2017-09-10] MEDS ORDERED: INSULIN LISPRO 100 UNITS/ML VIAL SC ONE (17:24)
[2017-09-10 17:38] LABS: Urine Appearance Clear; Urine Bacteria TRACE; Urine Color Yellow; Urine RBC None Seen /hpf (0-5); Urine WBC None Seen /hpf (0-5)
[2017-09-10] MEDS ORDERED: INSULIN LISPRO 100 UNITS/ML VIAL ONE (17:50)
[2017-09-10 21:51] VITALS: BP 131/83
== END 2017-09-10 19:05 | disposition home or self-care (01) ==
LOC: ER 15:56
DX: R73.9 Hyperglycemia, unspecified (principal); T38.0X5A Adverse effect of glucocorticoids and synthetic analogues, initial encounter; E11.9 Type 2 diabetes mellitus without complications

== ENCOUNTER 2017-09-14 20:44 | Emergency (ER) | payer BC, MEDICARE, OTHER ==
--- NOTE | 2017-09-14 21:12 | ERNOTE ---
Chest Pain/Cardiac HPI Chief Complaint: Chest Pain Time Seen by Provider: 09/14/17 20:51 Source: patient Exam Limitations: clinical condition Immunizations: IMMUNIZATION HX Immunizations Up to Date Yes History of Influenza Vaccine No Hx Pneumococcal Vaccination Yes Allergies/Adverse Reactions: Allergies dichloralphenazone [From MIDRIN] Allergy (Severe, Verified 09/14/17 22:06) HEART PALPATATIONS FROM ALLERGY SHEET iodine Allergy (Severe, Verified 09/14/17 22:06) THROAT SWELLING FROM ALLERGY SHEET isometheptene mucate [From MIDRIN] Allergy (Severe, Verified 09/14/17 22:06) HEART PALPATATIONS FROM ALLERGY SHEET nortriptyline [Nortriptyline] Allergy (Severe, Verified 09/14/17 22:06) PARALYZED-COULD NOT MOVE LEGS FROM ALLERGY LIST Shellfish *RETIRED-05/22/13 [Shellfish] Allergy (Severe, Verified 09/14/17 22:06 ) THROAT SWELLED UP FROM ALLERGY LIST ramelteon [From Rozerem] Allergy (Intermediate, Verified 09/14/17 22:06) FACIAL ITCHING/SWELLING FROM ALLERGY SHEET latex Allergy (Mild, Verified 09/14/17 22:06) RASH FROM ALLERGY SHEET Penicillins Allergy (Mild, Verified 09/14/17 22:06) RASH FROM ALLERGY SHEET tramadol HCl [From Ultram] Allergy (Mild, Verified 09/14/17 22:06) RASH/ITCHING/NAUSEA FROM ALLERGY SHEET aspartame Allergy (Unknown, Verified 09/14/17 22:06) BUTTERFLY RASH FACE FROM ALLERGY SHEET aspirin Allergy (Unknown, Verified 09/14/17 22:06) Itching FROM ALLERGY SHEET duloxetine HCl [From Cymbalta] Allergy (Unknown, Verified 09/14/17 22:06) "OPPOSITE EFFECT" FROM ALLERGY SHEET venom-honey bee [bee venom (honey bee)] Allergy (Unknown, Verified 09/14/17 22: 06) FROM ALLERGY SHEET Grass Pollen-Berm *RETIRED-05/22/13 [Grass Pollen-[place], Standard] Adverse Reaction (Intermediate, Verified 09/14/17 22:06) RHINITIS FROM ALLERGY SHEET house dust [House Dust] Adverse Reaction (Intermediate, Verified 09/14/17 22:06) RHINITIS FROM ALLERGY SHEET monosodium glutamate Adverse Reaction (Intermediate, Verified 09/14/17 22:06) MIGRAINES FROM ALLERGY SHEET Ragweed *RETIRED-05/22/13 [Ragweed] Adverse Reaction (Intermediate, Verified 22:06) RHINITIS FROM ALLERGY SHEET pregabalin [From Lyrica] Adverse Reaction (Mild, Verified 09/14/17 22:06) Other codeine [Codeine] Adverse Reaction (Unknown, Verified 09/14/17 22:06) NAUSEA/DIZZINESS FROM ALLERGY SHEET atorvastatin [From Lipitor] Adverse Reaction (Verified 09/14/17 22:06) Other mold Allergy (Unknown, Uncoded 09/14/17 22:06) Home Medications: HOME MEDICATIONS Alprazolam [Alprazolam Xr] 0.25 mg PO DAILY PRN 10/01/13 [Last Taken Unknown] Baclofen 10 mg PO TID 10/01/13 [Last Taken Unknown] Calcium Carbonate [Tums] 750 mg PO QID 10/01/13 [Last Taken Unknown] Doxepin HCl 100 mg PO HS 10/01/13 [Last Taken Unknown] Esomeprazole Magnesium [Nexium] 40 mg PO DAILY 10/01/13 [Last Taken Unknown] Gabapentin 900 mg PO BID 10/01/13 [Last Taken Unknown] Montelukast Sodium 10 mg PO DAILY 10/01/13 [Last Taken Unknown] Topiramate [Topamax] 200 mg PO BID 10/01/13 [Last Taken Unknown] metFORMIN HCL [Metformin HCl ER] 1,000 mg PO BID 10/01/13 [Last Taken Unknown] Cholecalciferol [Vitamin D] 50,000 unit PO Q7D 02/24/14 [Last Taken Unknown] Zolpidem Tartrate [Ambien] 10 mg PO HS PRN 02/24/14 [Last Taken Unknown] Albuterol Sulfate/Ipratropium [Duoneb 2.5-0.5MG/3ML Soln] 3 ml IH QID 07/06/14 [ Last Taken 07/06/14] Polyethylene Glycol 3350 [Gentlelax] 17 gm PO DAILY #510 gm 05/25/16 [Last Taken Unknown] Levalbuterol Tartrate [Xopenex Hfa] 15 gm IH DAILY 09/08/17 [Last Taken Unknown] Nebulizer Accessories [Aeroneb Go] 1 each ONCE #1 each 09/08/17 [Last Taken Unknown] Nebulizer [Aeroeclipse II] 1 each ONCE #1 each 09/08/17 [Last Taken Unknown] Meclizine HCl [Antivert] 25 mg PO TID #14 tab 09/14/17 [Last Taken Unknown] Narrative: pt has had left chest pain for "months". She has been referred to a coffee sampler by her PCP, whom she sees next month. Timing: getting worse Severity/Quality: moderate Location: shoulder - left Chest Pain Radiation: arms - left Activities at Onset: none Aspirin Treatment Today: no aspirin today - allergic Prior Chest Pain/Cardiac Workup: Reports: prior chest pain, non-cardiac Review of Systems - Review of Systems Constitutional: Present: no symptoms reported EYE: Present: no symptoms reported ENT: Present: nose congestion Respiratory: Present: shortness of breath Cardiology: Present: chest pain, palpitations, syncope - near syncope Gastrointestinal/Abdominal: Present: no symptoms reported Genitourinary: Present: no symptoms reported Musculoskeletal: Present: muscle pain, muscle stiffness Skin: Absent: rash Neurological: Present: dizziness/light-headedness Endocrine: Present: no symptoms reported Hematologic/Lymphatic: Present: no symptoms reported - Patient's Past Medical History Patient History - Medical: Anxiety, Chronic Pain, Diabetes Type 2, Fibromyalgia , GERD, Migraines, Obesity Patient History - Cardiac/Respiratory: Asthma Patient History - Cancer: No Hx of Cancer Patient History - Surgical Procedures: Cholecystectomy, Patient History - Other: None LMP (females 10-50): now - Family History Father Family History - Medical: , Diabetes Type 2 Family History - Cardiac/Respiratory: Myocardial Infarction - Social History Living Situations: home Abuse History: No History of abuse Psych History: Hx of Anxiety, Hx of Depression Smoking Status: Never smoker Alcohol Use: none Drug Use: none - Immunizations Immunizations Up to Date: Yes Hx Pneumococcal Vaccination: Yes History of Influenza Vaccine: No Physical Exam - Physical Exam General Appearance: Present: wd/wn, alert, mild distress Head Exam: Present: normal inspection, no evidence of injury Eye Exam: Normal inspection: bilateral Neck: Present: normal inspection, nontender Respiratory: Present: no respiratory distress, normal breath sounds, lungs clear Cardiovascular/Chest: Present: regular rate, rhythm, no murmur, normal peripheral pulses, chest tenderness - left side Back Exam: Present: normal inspection, no vertebral tenderness Extremity Exam: Present: bony tenderness - left shoulderness Neurological Exam: Present: alert, oriented, normal mood/affect, no motor/ sensory deficits Skin Exam: Present: normal color, warm/dry Lymphatic Exam: Present: no adenopathy ED Progress - Results and Orders Patient's Lab Results:: I have reviewed the patient's lab results. Results and Orders: Laboratory Tests 09/14/17 09/14/17 09/14/17 21:25 21:25 21:25 WBC 11.6 H Hgb 14.3 Hct 40.8 Plt Count 437 Sodium 135 Potassium 3.9 Chloride 99 Carbon Dioxide 19.9 L Anion Gap 20.0 H BUN 9 Creatinine 1.03 Random Glucose 197 H Calcium 8.6 Magnesium 1.9 Total Bilirubin 0.4 AST 38 ALT 56 Alkaline Phosphatase 65 Troponin I Less than 0.017 Total Protein 8.0 Albumin 4.1 Amylase 23 L Lipase 86 Urine Color Pale yellow Urine Appearance Clear Urine pH 6.0 Ur Specific [place] <=1.005 Urine Protein Negative Urine Glucose (UA) Negative Urine Ketones Negative Urine Blood 250 H Urine Nitrate Negative Urine Bilirubin Negative Urine Urobilinogen Normal Ur Leukocyte Esterase Negative Urine RBC None seen Urine WBC None seen Ur Epithelial Cells 0-5 Urine Bacteria Trace Urine Culture Comments No culture indicated Urine Opiates Screen Barbiturate Screen Ur Phencyclidine Scrn Urine Amphetamine U Benzodiazepines Scrn Urine Cocaine Screen Urine Marijuana (THC) 09/14/17 21:25 WBC Hgb Hct Plt Count Sodium Potassium Chloride Carbon Dioxide Anion Gap BUN Creatinine Random Glucose Calcium Magnesium Total Bilirubin AST ALT Alkaline Phosphatase Troponin I Total Protein Albumin Amylase Lipase Urine Color Urine Appearance Urine pH Ur Specific [place] Urine Protein Urine Glucose (UA) Urine Ketones Urine Blood Urine Nitrate Urine Bilirubin Urine Urobilinogen Ur Leukocyte Esterase Urine RBC Urine WBC Ur Epithelial Cells Urine Bacteria Urine Culture Comments Urine Opiates Screen Negative Barbiturate Screen Negative Ur Phencyclidine Scrn Negative Urine Amphetamine Negative U Benzodiazepines Scrn Negative Urine Cocaine Screen Negative Urine Marijuana (THC) Negative - Vital Signs Patient's Vital Signs:: I have reviewed the patient's vital signs. Vital Signs: Vital Signs 09/14/17 20:51 Temperature 36.4 C L Pulse Rate 107 H Respiratory 14 Rate Blood Pressure 137/84 O2 Sat by Pulse 98 Oximetry - EKG EKG read: Interp. by me EKG Comments: sinus tach at [address] or T wave changes - X-Ray X-Ray #1 X-Ray: chest Interpretation: Reviewed by me X-ray Comments: no acute cardiopulmonary process - Progress/Reassessment Chief Complaint: Chest Pain Departure Clinical Impression: Chest pain Qualifiers: Chest pain type: intercostal pain Qualified Code(s): R07.82 - Intercostal pain - Departure Disposition: Home self-care Condition: Good Instructions: Cryotherapy, [id number], Chest Wall Pain Additional Instructions: follow up as scheduled with your specialists Referrals: Garrett Gentile MD [Primary Care Provider] - Prescriptions: Meclizine HCl [Antivert] 25 mg PO TID #14 tab
[2017-09-14 21:32] LABS: Hematocrit 40.8 % (37.0-47.0); Hemoglobin 14.3 gm/dL (12.5-16.0); Mean Cell Volume 84.5 fl (78-100); Mean Corpuscular Hemoglobin 29.6 pg (27-31); Mean Platelet Volume 8.8 fl (6.0-9.5); Neutrophil # 6.2 K/mm3 (1.3-6.0); Neutrophil % 53.1 % (42-75.0); Platelet Count 437 K/mm3 (150-450); Red Blood Count 4.83 M/mm3 (4.2-5.4); Red Cell Distribution Width 12.2 % (11.5-14.0); White Blood Count 11.6 K/mm3 (4.0-10.5)
[2017-09-14 21:36] LABS: Urine Bilirubin Negative (NEGATIVE); Urine Blood 250 /ul (NEGATIVE); Urine Ketone Negative (NEGATIVE); Urine Nitrite Negative (NEGATIVE); Urine Protein Negative (NEGATIVE); Urine Specific Gravity <=1.005 SP.GR. (1.005-1.010); Urine Urobilinogen Normal (NORMAL)
[2017-09-14 21:48] LABS: Urine Appearance Clear; Urine Bacteria TRACE; Urine Color Pale Yellow; Urine RBC None Seen /hpf (0-5); Urine WBC None Seen /hpf (0-5)
[2017-09-14 21:49] LABS: Cocaine Ur Negative (NEGATIVE); Urine Barbiturate Negative (NEGATIVE); Urine Benzodiazepines Negative (NEGATIVE); Urine Opiates Negative (NEGATIVE); Urine PCP Negative (NEGATIVE); Urine THC Negative (NEGATIVE)
[2017-09-14 21:55] LABS: ALT 56 U/L (19-67); AST 38 U/L (0-48); Albumin * 4.1 gm/dl (3.4-5.0); Alkaline Phosphatase * 65 U/L (50-170); Amylase * 23 U/L (25-115); BUN/Creatinine Ratio 8.7 (9.0-21.6); Bilirubin, Total 0.4 mg/dL (0.0-1.1); Blood Urea Nitrogen 9 mg/dL (3-23); Ca. Corrected For Albumin 8.2 mg/dL (8.4-10.2); Calcium * 8.6 mg/dL (7.9-10.9); Carbon Dioxide 19.9 mmol/L (24-32.6); Chloride 99 mmol/L (97-106); Glucose * 197 mg/dL (70-110); Lipase 86 U/L (73-393); Magnesium 1.9 mg/dL (1.2-2.8); Potassium 3.9 mmol/L (3.4-4.6); Sodium 135 mmol/L (132-142); Troponin I Less than 0.017 ng/ml (0.00-0.10)
[2017-09-14] MEDS ORDERED: MECLIZINE HCL 25 MG TABLET PO ONE (23:43)
[2017-09-14] MEDS ORDERED: MECLIZINE HCL 25 MG TABLET ONE (23:46)
[2017-09-15 00:39] VITALS: BP 115/68
== END 2017-09-14 23:50 | disposition home or self-care (01) ==
LOC: ER 20:44
DX: R07.82 Intercostal pain (principal); J45.909 Unspecified asthma, uncomplicated; K21.9 Gastro-esophageal reflux disease without esophagitis; E11.9 Type 2 diabetes mellitus without complications; F41.9 Anxiety disorder, unspecified

== ENCOUNTER 2017-11-13 11:52 | Emergency (ER) | payer BC, MEDICARE, OTHER ==
--- NOTE | 2017-11-13 13:10 | ERNOTE ---
ENT HPI Date of Service: 11/13/17 Presenting Symptoms: other - sore throat Time Seen by Provider: 11/13/17 12:13 Source: patient Exam Limitations: no limitations - Immun/Allergies/Home Medications Immunizations: IMMUNIZATION HX Immunizations Up to Date Yes History of Influenza Vaccine No Hx Pneumococcal Vaccination Yes Allergies/Adverse Reactions: Allergies Allergy/AdvReac Type Severity Reaction Status Date / Time dichloralphenazone Allergy Severe HEART Verified 11/13/17 12:09 [From MIDRIN] PALPATATIONS iodine Allergy Severe THROAT Verified 11/13/17 12:09 SWELLING isometheptene mucate Allergy Severe HEART Verified 11/13/17 12:09 [From MIDRIN] PALPATATIONS nortriptyline [Nortriptyline] Allergy Severe PARALYZED-COULD Verified 11/13/17 12:09 NOT MOVE LEGS Shellfish *RETIRED-05/22/13 Allergy Severe THROAT Verified 11/13/17 12:09 [Shellfish] SWELLED UP ramelteon [From Rozerem] Allergy Intermediate FACIAL Verified 11/13/17 12:09 ITCHING/SWELLING latex Allergy Mild RASH Verified 11/13/17 12:09 Penicillins Allergy Mild RASH Verified 11/13/17 12:09 tramadol HCl [From Ultram] Allergy Mild RASH/ITCHIN Verified 11/13/17 12:09 G/NAUSEA aspartame Allergy Unknown BUTTERFLY Verified 11/13/17 12:09 RASH FACE aspirin Allergy Unknown Itching Verified 11/13/17 12:09 duloxetine HCl Allergy Unknown "OPPOSITE Verified 11/13/17 12:09 [From Cymbalta] EFFECT" venom-honey bee Allergy Unknown Verified 11/13/17 12:09 [bee venom (honey bee)] Grass Pollen-Berm AdvReac Intermediate RHINITIS Verified 11/13/17 12:09 *RETIRED-05/22/13 [Grass Pollen-[place], Standard] house dust [House Dust] AdvReac Intermediate RHINITIS Verified 11/13/17 12:09 monosodium glutamate AdvReac Intermediate MIGRAINES Verified 11/13/17 12:09 Ragweed *RETIRED-05/22/13 AdvReac Intermediate RHINITIS Verified 11/13/17 12:09 [Ragweed] pregabalin [From Lyrica] AdvReac Mild Other Verified 11/13/17 12:09 codeine [Codeine] AdvReac Unknown NAUSEA/DIZZ Verified 11/13/17 12:09 INESS atorvastatin [From Lipitor] AdvReac Other Verified 11/13/17 12:09 mold Allergy Unknown Uncoded 11/13/17 12:09 Home Medications: HOME MEDICATIONS Alprazolam [Alprazolam Xr] 0.25 mg PO DAILY PRN 10/01/13 [Last Taken Unknown] Baclofen 10 mg PO TID 10/01/13 [Last Taken Unknown] Calcium Carbonate [Tums] 750 mg PO QID 10/01/13 [Last Taken Unknown] Doxepin HCl 100 mg PO HS 10/01/13 [Last Taken Unknown] Esomeprazole Magnesium [Nexium] 40 mg PO DAILY 10/01/13 [Last Taken Unknown] Gabapentin 900 mg PO BID 10/01/13 [Last Taken Unknown] Montelukast Sodium 10 mg PO DAILY 10/01/13 [Last Taken Unknown] Topiramate [Topamax] 200 mg PO BID 10/01/13 [Last Taken Unknown] metFORMIN HCL [Metformin HCl ER] 1,000 mg PO BID 10/01/13 [Last Taken Unknown] Cholecalciferol [Vitamin D] 50,000 unit PO Q7D 02/24/14 [Last Taken Unknown] Zolpidem Tartrate [Ambien] 10 mg PO HS PRN 02/24/14 [Last Taken Unknown] Albuterol Sulfate/Ipratropium [Duoneb 2.5-0.5MG/3ML Soln] 3 ml IH QID 07/06/14 [ Last Taken 07/06/14] Polyethylene Glycol 3350 [Gentlelax] 17 gm PO DAILY #510 gm 05/25/16 [Last Taken Unknown] Levalbuterol Tartrate [Xopenex Hfa] 15 gm IH DAILY 09/08/17 [Last Taken Unknown] Nebulizer Accessories [Aeroneb Go] 1 each MC ONCE #1 each 09/08/17 [Last Taken Unknown] Nebulizer [Aeroeclipse II] 1 each MC ONCE #1 each 09/08/17 [Last Taken Unknown] Meclizine HCl [Antivert] 25 mg PO TID #14 tab 09/14/17 [Last Taken Unknown] Azithromycin [Zithromax] 500 mg PO NOW #6 tab 11/13/17 [Last Taken Unknown] predniSONE [Prednisone] 2 tab PO DAILY 5 Days #10 tab 11/13/17 [Last Taken Unknown] - History of Present Illness Narrative: Patient presents to the ED with 3 days of right ear pain , sore throat, cough. She has asthma and feels like her asthma is mildly exacerbated. No acute SOB. No drooling. Hurts to swallow but still taking good orals. Has felt feverish. Moderate Sx. Severity: Present: moderate ENT Location: Present: ear (R), throat Prearrival Treatment: Present: no prearrival treatment Modifying Factors - Improves: Reports: nothing Modifying Factors - Worsens: Reports: nothing Associated Symptoms - ENT: Reports: fever, cough, sore throat. 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 Review of Systems - Review of Systems Constitutional: Present: fever EYE: Absent: eye discharge ENT: Present: sore throat Respiratory: Present: cough Cardiology: Absent: chest pain Gastrointestinal/Abdominal: Absent: abdominal pain Skin: Absent: rash Neurological: Absent: weakness - Patient's Past Medical History Patient History - Medical: Anxiety, Chronic Pain, Diabetes Type 2, Fibromyalgia , GERD, Migraines, Obesity Patient History - Cardiac/Respiratory: Asthma Patient History - Cancer: No Hx of Cancer Patient History - Surgical Procedures: Cholecystectomy, Patient History - Other: None LMP (females 10-50): this week - Family History Father Family History - Medical: , Diabetes Type 2 Family History - Cardiac/Respiratory: Myocardial Infarction - Social History Abuse History: No History of abuse Psych History: Hx of Anxiety, Hx of Depression Smoking Status: Never smoker Alcohol Use: none Drug Use: none - Immunizations Immunizations Up to Date: Yes Hx Pneumococcal Vaccination: Yes History of Influenza Vaccine: No Physical Exam - Physical Exam General Appearance: Present: alert, no apparent distress, other - pleasant, well hydrated, speaking in full snetences. No distress Head Exam: Present: normal inspection, no evidence of injury Eye Exam: Normal inspection: bilateral, PERRL: bilateral Ears, Nose, Throat: Present: abnormal TM (R), pharyngeal erythema, other - Right OM. No malignant OE or mastoiditis. No BUTT MAKER, RPA or epiglottitis.. Absent: pharyngeal swelling, tonsillar exudate, tonsillar swelling, dry mucous membranes Neck: Present: normal inspection, nontender, other - no meningeal sings Respiratory: Present: no respiratory distress, normal breath sounds, no accessory muscle use, lungs clear Cardiovascular/Chest: Present: regular rate, rhythm Gastrointestinal/Abdominal: Present: normal bowel sounds, nontender, soft Back Exam: Present: normal range of motion Extremity Exam: Present: normal inspection Neurological Exam: Present: alert, normal mood/affect, no motor/sensory deficits Skin Exam: Present: normal color, warm/dry ED Progress - Results and Orders Patient's Lab Results:: I have reviewed the patient's lab results. - Vital Signs Patient's Vital Signs:: I have reviewed the patient's vital signs. Vital Signs: Vital Signs 11/13/17 11/13/17 12:04 12:19 Temperature 36.4 C L 36.4 C L Pulse Rate 87 87 Respiratory 14 14 Rate Blood Pressure 140/73 140/73 O2 Sat by Pulse 97 97 Oximetry - Progress/Reassessment Chief Complaint: Sore Throat Progress Note-Subjective: 11/13/17 13:07 I offered the patient additional w/u with labs and CXR but she declines this. She understands risks and benefits. She sometimes needs steroids for her asthma , She does not feel she needs them now but I will Rx these for her incase she needs them. She wishes to try antibiotic therapy and return if she worsens for the testing we discussed. Departure Clinical Impression: Otitis media, Pharyngitis - Departure Disposition: Home self-care Condition: Stable Instructions: Throat Culture Additional Instructions: Rest. FLuids. Medications as directed. Steroids will elevate your blood sugar. Keep your appointment Wednesday for a re-check. Return here if you change your mind about having the additional testing we discussed, if you develop trouble breathing or swallowing or if your condition worsens or changes in any way. Prescriptions: Azithromycin [Zithromax] 500 mg PO NOW #6 tab predniSONE [Prednisone] 2 tab PO DAILY 5 Days #10 tab
[2017-11-13 17:28] VITALS: BP 118/78
== END 2017-11-13 13:05 | disposition home or self-care (01) ==
LOC: ER 11:52
DX: J45.909 Unspecified asthma, uncomplicated; K21.9 Gastro-esophageal reflux disease without esophagitis; J02.9 Acute pharyngitis, unspecified; F41.9 Anxiety disorder, unspecified; H66.91 Otitis media, unspecified, right ear; E11.9 Type 2 diabetes mellitus without complications